=== PATIENT | female | born 1960 | race Hispanic/Latino ===

== ENCOUNTER 2019-11-25 14:24 | Outpatient (CLI) | payer BC ==
--- NOTE | 2019-11-25 16:41 | Ultrasound Report ---
RIGHT BREAST ULTRASOUND HISTORY: Abnormal MRI with a ring-enhancing lesion described at 12:00. History of 2 benign right ster eotactic breast biopsies. COMPARISON: MRI breast 10/02/2019 from [facility]. FINDINGS: Sonographic evaluation focused upon the 12:00 6 centimeters from the nipple location of the right breast demonstrates no definite abnormality to correlate with the MRI and mammographic finding s. The technologist demonstrated a 3 mm superficial cyst at 11:30 o'clock 4 cm from the nipple which appears to have a partially calcified wall and may correlate with an area of fat necrosis that would explain findings on both the recent MRI and her last mammogram. However, when started to biopsy the l esion could not be reproduced with satisfaction. IMPRESSION: No definite sonographic correlate for biopsy at this time. I do think that the MRI finding is most li marquez a benign finding related to fat necrosis associated with a previous stereotactic biopsy tract. T here is also mammographic calcification that correlates with this MRI finding. MRI guided needle biop sy would be the most definitive biopsy procedure since this was originally described as an MRI findin g. However, the patient does not want to proceed with MRI biopsy at this time. Follow up MRI in 6 months. BIRADS 3: Probably benign. Signer Name: Vlad Mcdonald MD Signed: 11/25/2019 4:37 PM Workstation Name: [id number]
== END 2019-11-25 14:25 | disposition home or self-care (01) ==
LOC: SPVWC 14:24
PROVIDERS: ATTEND Surgery
DX: N60.01 Solitary cyst of right breast (principal)